=== PATIENT | female | born 1955 ===

== ENCOUNTER 2022-10-09 08:56 | Inpatient (IN) | payer OTHER ==
[2022-10-09 10:01] LABS: #Basophils 0.1 thou/uL (0.0-0.2); #Eosinphils 0.2 thou/uL (0.0-0.7); #Monocytes 0.8 thou/uL (0.11-0.59); #Neutrophils 4.3 thou/uL (1.40-6.50); %Basophils 0.8 % (0.0-1.0); %Eosinophils 2.1 % (0.0-10.0); %Lymphocytes 25.1 % (21.0-51.0); %Monocytes 10.6 % (0.0-10.0); Hemoglobin 10.1 g/dL (12.0-16.0); Mean Corpuscular HGB CONC 31.8 g/dL (32.0-36.0); Mean Corpuscular Hemoglobin 34.7 pg (27.0-31.0); Mean Corpuscular Volume 109.3 fl (78.0-98.0); Mean Platelet Volume 9.9 fL (7.4-10.4); Platelet Count 205 10x3/uL (130-400); RBC Distribution Width 17.4 % (11.5-14.5); Red Blood Cell (RBC) Count 2.91 mill/uL (4.20-5.40); White Blood Cell (WBC) Count 7.2 10x3/uL (4.8-10.8)
[2022-10-09 10:23] LABS: ALT (SGPT) 19 U/L (8-55); AST (SGOT) 71 U/L (5-34); Albumin 2.2 g/dL (3.4-4.8); Alkaline Phosphatase 500 U/L (40-110); Anion Gap 19 mmol/L (10-20); BUN (Urea Nitrogen) 16 mg/dL (9.8-20.1); Bilirubin, Total 2.3 mg/dL (0.2-1.2); Calc. Creatinine Clearance 0 mL/min (70-130); Calcium 7.3 mg/dL (7.8-10.44); Carbon Dioxide 24 mmol/L (23-31); Chloride 95 mmol/L (98-107); Estimated GFR 55; Globulin 3.1 g/dL (2.4-3.5); Glucose 82 mg/dL (80-115); Potassium 3.7 mmol/L (3.5-5.1); Protein, Total 5.3 g/dL (5.8-8.1); Sodium 134 mmol/L (136-145)
[2022-10-09] MEDS ORDERED: Lidocaine 1% PF 5 ML VIAL ONE (11:30)
[2022-10-09] MEDS ORDERED: Bacitracin 1 PK ONE (12:21)
[2022-10-09] MEDS ORDERED: TETANUS, DIPHTHERIA TOX,ADULT (TDVAX) 0.5 ML VIAL IM ONE (13:40)
[2022-10-09] MEDS ORDERED: Ondansetron PF 4 MG/2 ML Vial IVP PRN (13:40)
[2022-10-09] MEDS ORDERED: Dextrose 5% in Water 1,000 ML IV PRN (13:40)
[2022-10-09] MEDS ORDERED: Ondansetron ODT 4 MG TAB PO PRN (13:40)
[2022-10-09] MEDS ORDERED: Glucagon 1 MG/ML KIT IM PRN (13:40)
[2022-10-09] MEDS ORDERED: Dextrose 50% Abboject 50 ML SYRINGE SLOW IVP PRN (13:40)
[2022-10-09] MEDS ORDERED: Sodium Chloride 0.9% 1,000 ML IV SCH (14:00)
[2022-10-09] MEDS ORDERED: Acetaminophen 500 MG TAB ONE (14:04)
[2022-10-09] MEDS ORDERED: Boostrix 0.5 ML (Tdap) VIAL (>/=7 yrs of age) ONE (16:22)
[2022-10-09] MEDS ORDERED: Hydrocortisone Sod Succ/PF 100 mg/2 ml Vial IVP SCH (18:30)
[2022-10-09 18:39] LABS: Bacteria/HPF 3+ HPF (None Seen); Bilirubin 1+ (Negative); Blood, Urine Negative (Negative); Clarity Clear (Clear); Glucose, Urine (Dipstick) Normal (Negative); Ketone, Urine Negative (Negative); Leukocyte 500 Leu/uL (Negative); Nitrite Negative (Negative); Protein, Urine (Dipstick) Negative (Neg-Trace); RBC/HPF 0-3 HPF (0-3); Specific Gravity, Urine 1.016 (1.002-1.036); Urobilinogen 6 mg/dL (Less than 2); pH, Urine 5.5 (5.0-9.0)
[2022-10-09] MEDS ORDERED: Hydrocortisone Sod Succ/PF 100 mg/2 ml Vial ONE (18:48)
[2022-10-09 22:01] VITALS: BMI 44.4
[2022-10-09 23:38] LABS: INR-International Normal Ratio 2.6; Prothrombin Time 28.7 sec (12.0-14.7)
[2022-10-10] MEDS: Acetaminophen 325 MG TAB PO PRN ×3 (00:21→20:56)
[2022-10-10] MEDS ORDERED: Hydrocortisone Sod Succ/PF 100 mg/2 ml Vial IVP SCH (02:00)
[2022-10-10 03:28] LABS: #Monocytes 0.3 thou/uL (0.11-0.59); #Neutrophils 4.3 thou/uL (1.40-6.50); %Lymphocytes 17.7 % (21.0-51.0); %Monocytes 4.5 % (0.0-10.0); %Neutrophils 76.5 % (42.0-75.0); Hemoglobin 9.3 g/dL (12.0-16.0); Mean Corpuscular HGB CONC 32.3 g/dL (32.0-36.0); Mean Corpuscular Hemoglobin 35.4 pg (27.0-31.0); Mean Corpuscular Volume 109.5 fl (78.0-98.0); Mean Platelet Volume 9.7 fL (7.4-10.4); Platelet Count 200 10x3/uL (130-400); RBC Distribution Width 17.7 % (11.5-14.5); Red Blood Cell (RBC) Count 2.63 mill/uL (4.20-5.40); White Blood Cell (WBC) Count 5.6 10x3/uL (4.8-10.8)
[2022-10-10 03:45] LABS: INR-International Normal Ratio 1.2; PTT 32.7 sec (22.9-36.1); Prothrombin Time 15.2 sec (12.0-14.7)
[2022-10-10 03:50] LABS: Anion Gap 16 mmol/L (10-20); BUN (Urea Nitrogen) 13 mg/dL (9.8-20.1); Calc. Creatinine Clearance 137 mL/min (70-130); Carbon Dioxide 25 mmol/L (23-31); Chloride 101 mmol/L (98-107); Estimated GFR 87; Glucose 119 mg/dL (80-115); Potassium 3.8 mmol/L (3.5-5.1); Sodium 138 mmol/L (136-145)
[2022-10-10 04:21] LABS: Calcium 6.9 mg/dL (7.8-10.44)
[2022-10-10] MEDS ORDERED: Calcium Gluconate 100 MG/ML 10 ML IVPB SCH (05:00)
[2022-10-10] MEDS ORDERED: CALCIUM GLUC 1 GM/NS 50 ML 1 GM in Premix Bag 1 BAG IVPB SCH (05:15)
[2022-10-10] MEDS ORDERED: Calcium Chloride 13.6 MEQ in Sodium Chloride 0.9% 100 ML IVPB SCH (08:00)
[2022-10-10] MEDS: Senokot S 8.6-50 MG TAB PO SCH ×2 (08:54→20:53)
[2022-10-10] MEDS: Polyethylene Glycol 3350 17 GM Packet PO SCH (08:54)
[2022-10-10] MEDS: Hydrocortisone Sod Succ/PF 100 mg/2 ml Vial IVP SCH ×2 (09:39→17:51)
[2022-10-10 10:57] LABS: ALT (SGPT) 18 U/L (8-55); AST (SGOT) 61 U/L (5-34); Albumin 1.9 g/dL (3.4-4.8); Alkaline Phosphatase 455 U/L (40-110); Anion Gap 14 mmol/L (10-20); BUN (Urea Nitrogen) 12 mg/dL (9.8-20.1); Bilirubin, Total 2.5 mg/dL (0.2-1.2); Calc. Creatinine Clearance 162 mL/min (70-130); Calcium 7.1 mg/dL (7.8-10.44); Carbon Dioxide 26 mmol/L (23-31); Chloride 101 mmol/L (98-107); Estimated GFR 91; Globulin 2.9 g/dL (2.4-3.5); Glucose 123 mg/dL (80-115); Magnesium 1.9 mg/dL (1.6-2.6); Potassium 3.8 mmol/L (3.5-5.1); Protein, Total 4.8 g/dL (5.8-8.1); Sodium 137 mmol/L (136-145)
[2022-10-10] MEDS ORDERED: Magnesium 2 GM/50 ML(in water) 2 GM in Premix Bag 1 BAG IVPB SCH (12:30)
[2022-10-10] MEDS ORDERED: Lactated Ringer's 1,000 ML IV SCH (14:30)
[2022-10-10] MEDS: Gabapentin 400 MG CAP PO SCH ×2 (15:01→20:52)
[2022-10-10] MEDS ORDERED: Metoprolol Tartrate 25 MG TAB PO SCH ×3 (21:00)
[2022-10-11] MEDS: Hydrocortisone Sod Succ/PF 100 mg/2 ml Vial IVP SCH (03:25)
[2022-10-11] MEDS ORDERED: Hydrocortisone Sod Succ/PF 100 mg/2 ml Vial IVP SCH (03:30)
[2022-10-11] MEDS: Gabapentin 400 MG CAP PO SCH (08:09)
[2022-10-11] MEDS: Polyethylene Glycol 3350 17 GM Packet PO SCH (08:10)
[2022-10-11] MEDS: Senokot S 8.6-50 MG TAB PO SCH (08:10)
[2022-10-11 08:30] VITALS: TEMP 97.5
[2022-10-11 14:24] VITALS: BP 152/93
== END 2022-10-11 14:22 | disposition home or self-care (01) | DRG 86 ==
LOC: ERS 08:56 → ERHOLD 13:44 → IMCU/EMU 22:59
PROVIDERS: ADMIT Specialist; ATTEND Specialist
PROC: 30233J1 Transfusion of Nonautologous Serum Albumin into Peripheral Vein, Percutaneous Approach (ICD-10-PCS; principal; 2022-10-10)
DX: S06.6X0A Traumatic subarachnoid hemorrhage without loss of consciousness, initial encounter (principal); E27.40 Unspecified adrenocortical insufficiency; I10 Essential (primary) hypertension; S01.411A Laceration without foreign body of right cheek and temporomandibular area, initial encounter; S51.011A Laceration without foreign body of right elbow, initial encounter; I89.0 Lymphedema, not elsewhere classified; E83.51 Hypocalcemia; Z96.651 Presence of right artificial knee joint; Z90.49 Acquired absence of other specified parts of digestive tract; Z90.710 Acquired absence of both cervix and uterus; Z88.8 Allergy status to other drugs, medicaments and biological substances; Z79.01 Long term (current) use of anticoagulants; Z79.899 Other long term (current) drug therapy; Z86.711 Personal history of pulmonary embolism; W01.198A Fall on same level from slipping, tripping and stumbling with subsequent striking against other object, initial encounter
CPT/HCPCS: 12001; 12011; 36415; 70450; 71045; 72125; 72170; 80048; 80053; 81001; 82533; 83735; 84484; 85025; 85610; 85730; 90714; 90715; 93005; 94760; 96360; 96361; 97139; J0613; J1720; J3475; J3490; J7050; J7120; P9045

== ENCOUNTER 2024-02-17 15:18 | Inpatient (IN) | payer MEDICARE, OTHER ==
[~2024-02-17 15:18] MED LIST: Iopamidol-370 76% 500 ML MDV (1 ML CHARGE) ONE
[2024-02-17 15:51] LABS: Actual Bicarbonate (HCO3v) 26.4 mEq/L (22-28); Base Excess 2.1 mEq/L (-2.0 to +3.0); Calcium, Ionized (venous) 0.99 mmol/L (1.16-1.32); Chloride (VBG) 99 mmol/L (98-106); Hematocrit-VBG 40 % (36.0-47.0); Hemoglobin (Hb) 13.7 g/dL (11.7-16.1); Potassium (VBG) 3.75 mmol/L (3.70-5.30); Sodium 137 mmol/L (133-146); pH (venous) 7.437 (7.32-7.43)
[2024-02-17 15:56] LABS: #Basophils Less than 0.03 10x3/uL (0.0-0.2); #Eosinophils Less than 0.03 10x3/uL (0.0-0.7); %Basophils 0.1 % (0.0-1.0); %Eosinophils 0.1 % (0.0-10.0); %Lymphocytes 7.9 % (21.0-51.0); %Monocytes 1.3 % (0.0-10.0); %Neutrophils 89.9 % (42.0-75.0); Hematocrit 38.8 % (36.0-47.0); Mean Corpuscular HGB CONC 33.5 g/dL (32.0-36.0); Mean Corpuscular Hemoglobin 35.4 pg (27.0-31.0); Mean Corpuscular Volume 105.7 fL (78.0-98.0); Platelet Count 274 10x3/uL (130-400); RBC Distribution Width 18.6 % (11.5-14.5); Red Blood Cell (RBC) Count 3.67 mill/uL (4.20-5.40)
[2024-02-17 16:11] LABS: ALT (SGPT) 11 U/L (8-55); AST (SGOT) 45 U/L (5-34); Albumin 1.8 g/dL (3.4-4.8); Alkaline Phosphatase 422 U/L (40-110); Anion Gap 18 mmol/L (10-20); BUN (Urea Nitrogen) 5 mg/dL (9.8-20.1); Bilirubin, Total 4.4 mg/dL (0.2-1.2); Calc. Creatinine Clearance 0 mL/min (70-130); Calcium 7.7 mg/dL (7.8-10.44); Carbon Dioxide 25 mmol/L (23-31); Chloride 99 mmol/L (98-107); Estimated GFR 98; Globulin 3.3 g/dL (2.4-3.5); Glucose 123 mg/dL (80-115); Potassium 3.7 mmol/L (3.5-5.1); Protein, Total 5.1 g/dL (5.8-8.1); Sodium 138 mmol/L (136-145)
[2024-02-17] MEDS ORDERED: Cefepime 2 GM VIAL ONE (16:12)
[2024-02-17] MEDS ORDERED: Sodium Chloride 0.9% 100 ML ONE (16:12)
[2024-02-17 16:37] LABS: INR-International Normal Ratio 1.7; PTT 51.9 sec (22.9-36.1); Prothrombin Time 19.8 sec (12.0-14.7)
[2024-02-17] MEDS ORDERED: Ondansetron PF 4 MG/2 ML Vial IVP PRN (18:07)
[2024-02-17] MEDS ORDERED: Dextrose 50% Abboject 50 ML SYRINGE SLOW IVP PRN (18:07)
[2024-02-17] MEDS ORDERED: traMADol HCl 50 MG TAB PO PRN (18:07)
[2024-02-17] MEDS ORDERED: Glucagon 1 MG/ML KIT IM PRN (18:07)
[2024-02-17] MEDS ORDERED: Dextrose 5% in Water 1,000 ML IV PRN (18:07)
[2024-02-17 18:16] LABS: Bacteria/HPF 4+ HPF (None Seen); Bilirubin 2+ (Negative); Blood, Urine Negative (Negative); CAUTI Indications for Culture Pelvic or flank pain; Clarity Turbid (Clear); Glucose, Urine (Dipstick) Normal (Negative); Ketone, Urine Negative (Negative); Leukocyte 500 Leu/uL (Negative); Nitrite Negative (Negative); Protein, Urine (Dipstick) 50 mg/dL (Neg-Trace); Squamous Epithelial 0-3 HPF (0-3); Urobilinogen 6 mg/dL (Less than 2)
[2024-02-17 18:41] LABS: Specific Gravity, Urine 1.051 (1.002-1.036)
[2024-02-17 18:47] LABS: WBC/HPF 21-50 HPF (0-3)
[2024-02-17 18:48] LABS: RBC/HPF 0-3 HPF (0-3)
[2024-02-17 18:49] LABS: Urine Culture Reflex Yes Yes
[2024-02-17 19:20] LABS: Lactic Acid 3.63 mmol/L (0.5-2.2)
[2024-02-17] MEDS: Vancomycin (BATCH) 2 GM in Premix 1 BAG IVPB ONE (22:12)
[2024-02-17] MEDS: HUM PROTHROMBIN CPLX(PCC)4FACT 2,000 UNITS IV SCH (22:12)
[2024-02-17] MEDS: Famotidine/PF 20 mg/2ml Vial SLOW IVP SCH (22:19)
[2024-02-17] MEDS: cefTRIAXone\\ROCEPHIN 1 GM in Sodium Chloride 0.9% 100 ML IVPB SCH (22:19)
[2024-02-18] MEDS: Sodium Chloride 0.9% 1,000 ML IV SCH ×2 (00:09→08:35)
[2024-02-18] MEDS: Magnesium 2 GM/50 ML(in water) 2 GM in Premix 1 BAG IVPB SCH (00:19)
[2024-02-18 04:38] LABS: Hematocrit 34.3 % (36.0-47.0); Hemoglobin 11.4 g/dL (12.0-16.0); Mean Corpuscular HGB CONC 33.2 g/dL (32.0-36.0); Mean Corpuscular Volume 108.2 fL (78.0-98.0); Mean Platelet Volume 11.1 fL (7.4-10.4); Platelet Count 267 10x3/uL (130-400); RBC Distribution Width 18.7 % (11.5-14.5); Red Blood Cell (RBC) Count 3.17 mill/uL (4.20-5.40)
[2024-02-18 04:42] LABS: Anion Gap 19 mmol/L (10-20); BUN (Urea Nitrogen) 5 mg/dL (9.8-20.1); Calc. Creatinine Clearance 166 mL/min (70-130); Calcium 7.1 mg/dL (7.8-10.44); Carbon Dioxide 18 mmol/L (23-31); Chloride 106 mmol/L (98-107); Estimated GFR 101; Glucose 89 mg/dL (80-115); Potassium 3.4 mmol/L (3.5-5.1); Sodium 140 mmol/L (136-145)
[2024-02-18 04:46] LABS: ALT (SGPT) 13 U/L (8-55); AST (SGOT) 97 U/L (5-34); Albumin 1.6 g/dL (3.4-4.8); Alkaline Phosphatase 363 U/L (40-110); Bilirubin, Direct 3.1 mg/dL (0.1-0.3); Protein, Total 4.4 g/dL (5.8-8.1)
[2024-02-18 05:23] LABS: Anisocytosis SLIGHT = 6-15 cells HPF (0-5); Band 9 % (5-11); Burr Cells SLIGHT = 2-5 cells HPF (0-1); Lymphocytes 2 % (21-51); Macrocytosis MODERATE=16-30 cells HPF (0-5); Monocytes 4 % (0-10); Neutrophil 85 % (42-75); Platelet Adequacy Comment Platelets Decreased; Poikilocytosis SLIGHT = 6-15 cells HPF (0-5); Polychromasia SLIGHT = 2-3 cells HPF (0-2); Tear Drops SLIGHT = 2-5 cells HPF (0-1); Toxic Granulation SLIGHT; Vacuoles MODERATE
[2024-02-18] MEDS ORDERED: Electrolyte Replacement Protocol FS PRN ×2 (07:45→10:15)
[2024-02-18 08:03] LABS: INR-International Normal Ratio 1.5
[2024-02-18] MEDS: Potassium Chloride 20 MEQ in Premix 1 BAG IVPB SCH (09:31)
[2024-02-18] MEDS: Albumin 25% 25 GM (100 mL) BOT IVPB SCH (10:17)
[2024-02-18] MEDS: Electrolyte Replacement Protocol 1 EACH FS ONE ×2 (11:22→15:16)
[2024-02-18] MEDS ORDERED: Iopamidol-370 76% 500 ML MDV (1 ML CHARGE) ONE (11:48)
[2024-02-18 11:56] LABS: Magnesium 2.1 mg/dL (1.6-2.6)
[2024-02-18 12:05] LABS: Actual Bicarbonate (HCO3a) 20.7 mEq/L (22-28); Base Excess (BEa) -4.7 mEq/L (-2.0 to +3.0); CO2 Tension 39.5 mmHg (35.0-45.0); Calcium, Ionized (arterial) 1.02 mmol/L (1.12-1.30); Carboxyhemoglobin (COHb) 0.8 gm% (0.0-3.0); Hematocrit-ABG 34 % (36.0-47.0); Hemoglobin (Hb) 11.5 g/dL (12.0-16.0); Potassium - ABG Lab 3.92 mmol/L (3.70-5.30); pH, Arterial 7.338 (7.35-7.45)
[2024-02-18] MEDS: Etomidate 40 MG (20 mL) VIAL IVP SCH (12:19)
[2024-02-18] MEDS ORDERED: Magnevist 469MG/ML 20 ML VIAL ONE (12:19)
[2024-02-18] MEDS: NOREPINEPHRINE 8 MG/250 ML-D5W 250 ML IVPB SCH (12:24)
[2024-02-18] MEDS: Fentanyl CADD 100 ML IV SCH (12:38)
[2024-02-18] MEDS: Propofol 1,000 MG/100 ML VIAL IV PRN (12:38)
[2024-02-18] MEDS: Lorazepam 2 MG/ML VIAL SLOW IVP PRN (12:38)
[2024-02-18] MEDS ORDERED: Morphine 2 MG/ML VIAL SLOW IVP PRN (12:45)
[2024-02-18] MEDS ORDERED: Fentanyl BOLUS 250 ML IVPB PRN (12:45)
[2024-02-18] MEDS ORDERED: DISCONTINUE PREVIOUS NARCOTIC PAIN MEDICATIONS AND BENZODIAZEPINES FS SCH (12:45)
[2024-02-18 13:59] LABS: CO2 Tension 36.9 mmHg (35.0-45.0); Carboxyhemoglobin (COHb) 0.6 gm% (0.0-3.0); Hematocrit-ABG 31 % (36.0-47.0); Hemoglobin (Hb) 10.7 g/dL (12.0-16.0); pH, Arterial 7.352 (7.35-7.45)
[2024-02-18 14:01] LABS: ALV-art Gradient 287.675 mmHg (0-20); Puncture Site Left Radial artery
[2024-02-18] MEDS: Propofol 1,000 MG/100 ML VIAL IV ONE (15:13)
[2024-02-18 15:16] LABS: Lactic Acid 3.43 mmol/L (0.5-2.2)
[2024-02-18] MEDS: Meropenem 1 GM in Sodium Chloride 0.9% 100 ML IVPB SCH ×3 (15:16→20:32)
[2024-02-18] MEDS: Fentanyl CADD 100 ML ONE (15:17)
[2024-02-18] MEDS: levETIRAcetam 500 MG (5 mL) VIAL SLOW IVP SCH (15:24)
[2024-02-18] MEDS: NOREPINEPHRINE 8 MG/250 ML-D5W 250 ML ONE (15:24)
[2024-02-18] MEDS: Ventilator Sedation Protocol 1 EACH FS ONE (15:24)
[2024-02-18] MEDS: Lorazepam 2 MG/ML VIAL ONE (15:25)
[2024-02-18 16:13] LABS: Puncture Site Left Radial artery
[2024-02-18 19:39] LABS: #Basophils 0.03 10x3/uL (0.0-0.2); #Eosinophils Less than 0.03 10x3/uL (0.0-0.7); %Basophils 0.2 % (0.0-1.0); %Eosinophils 0.1 % (0.0-10.0); %Lymphocytes 9.6 % (21.0-51.0); %Monocytes 6.7 % (0.0-10.0); %Neutrophils 80.3 % (42.0-75.0); Hematocrit 30.3 % (36.0-47.0); Mean Corpuscular Hemoglobin 36.1 pg (27.0-31.0); Mean Corpuscular Volume 109.4 fL (78.0-98.0); Mean Platelet Volume 10.4 fL (7.4-10.4); Platelet Count 239 10x3/uL (130-400); RBC Distribution Width 19.4 % (11.5-14.5); Red Blood Cell (RBC) Count 2.77 mill/uL (4.20-5.40)
[2024-02-18 20:12] LABS: Anion Gap 17 mmol/L (10-20); BUN (Urea Nitrogen) 5 mg/dL (9.8-20.1); Calc. Creatinine Clearance 171 mL/min (70-130); Calcium 6.9 mg/dL (7.8-10.44); Carbon Dioxide 19 mmol/L (23-31); Chloride 106 mmol/L (98-107); Estimated GFR 101; Glucose 123 mg/dL (80-115); Potassium 4.2 mmol/L (3.5-5.1); Sodium 138 mmol/L (136-145)
[2024-02-18] MEDS: Calcium Chloride 1 GM/10 ML Abboject SYRINGE IVP SCH (20:41)
[2024-02-18] MEDS ORDERED: Calcium Chloride 13.6 MEQ in Sodium Chloride 0.9% 100 ML IVPB SCH (21:00)
[2024-02-18] MEDS: Lactated Ringer's 1,000 ML IV SCH (22:41)
[2024-02-18] MEDS: Albumin 5% 12.5 GM (250 mL) BOT IVPB SCH (22:41)
[2024-02-19] MEDS: Lactulose 20 GM (30 mL) UDCUP PER TUBE SCH ×2 (00:11→09:30)
[2024-02-19 03:52] LABS: #Basophils Less than 0.03 10x3/uL (0.0-0.2); %Basophils 0.1 % (0.0-1.0); %Eosinophils 0.3 % (0.0-10.0); %Lymphocytes 10.6 % (21.0-51.0); %Monocytes 7.5 % (0.0-10.0); %Neutrophils 80.7 % (42.0-75.0); Hematocrit 30.4 % (36.0-47.0); Hemoglobin 9.6 g/dL (12.0-16.0); Mean Corpuscular HGB CONC 31.6 g/dL (32.0-36.0); Mean Corpuscular Hemoglobin 36.1 pg (27.0-31.0); Mean Corpuscular Volume 114.3 fL (78.0-98.0); Mean Platelet Volume 9.7 fL (7.4-10.4); Platelet Count 197 10x3/uL (130-400); RBC Distribution Width 19.9 % (11.5-14.5); Red Blood Cell (RBC) Count 2.66 mill/uL (4.20-5.40)
[2024-02-19 04:02] LABS: INR-International Normal Ratio 1.5; Prothrombin Time 18.1 sec (12.0-14.7)
[2024-02-19 04:03] LABS: ALT (SGPT) 12 U/L (8-55); AST (SGOT) 81 U/L (5-34); Albumin 2.9 g/dL (3.4-4.8); Alkaline Phosphatase 212 U/L (40-110); Anion Gap 15 mmol/L (10-20); BUN (Urea Nitrogen) 6 mg/dL (9.8-20.1); Bilirubin, Total 4.4 mg/dL (0.2-1.2); Calc. Creatinine Clearance 171 mL/min (70-130); Calcium 7.8 mg/dL (7.8-10.44); Carbon Dioxide 20 mmol/L (23-31); Chloride 109 mmol/L (98-107); Estimated GFR 101; Glucose 139 mg/dL (80-115); Iron 35 ug/dL (50-170); Iron Binding Capacity, Total 63 mcg/dL (265-497); Lipase Less than 4 U/L (8-78); Magnesium 2.2 mg/dL (1.6-2.6); PTT 48.1 sec (22.9-36.1); Potassium 3.6 mmol/L (3.5-5.1); Protein, Total 4.9 g/dL (5.8-8.1); Sodium 140 mmol/L (136-145)
[2024-02-19 04:04] LABS: Hemoglobin A1c 4.2 % (4.0-6.0)
[2024-02-19 04:28] LABS: HBSAB Concentration Less than 8.00 mIU/mL; HBsAg Index 0.27 S/CO (0-0.99); Hep B Surf AB NONREACTIVE (NonReactive); Hep B Surf Ag NONREACTIVE S/CO (NonReactive); Hep C IgG Ab NONREACTIVE S/CO (NonReactive); Hep C Index 0.07 S/CO (0-0.79)
[2024-02-19 05:50] LABS: Thyroid Stimulating Hormone 0.1825 uIU/mL (0.35-4.94)
[2024-02-19 05:54] LABS: Vitamin B12 Greater than 2000 pg/mL (211-911)
[2024-02-19 08:25] LABS: CO2 Tension 32.5 mmHg (35.0-45.0); Calcium, Ionized (arterial) 1.08 mmol/L (1.12-1.30); Hematocrit-ABG 27 % (36.0-47.0); Hemoglobin (Hb) 9.2 g/dL (12.0-16.0); O2 Tension (PaO2), arterial 82.7 mmHg (> 80.0); Potassium - ABG Lab 3.28 mmol/L (3.70-5.30); pH, Arterial 7.408 (7.35-7.45)
[2024-02-19 08:27] LABS: ALV-art Gradient 161.875 mmHg (0-20)
[2024-02-19] MEDS: Thiamine HCl 200 MG/2 ML VIAL SLOW IVP SCH (11:00)
[2024-02-19] MEDS: levETIRAcetam 500 MG (5 mL) VIAL SLOW IVP SCH ×2 (11:00→20:05)
[2024-02-19] MEDS: Albumin 5% 12.5 GM (250 mL) BOT IVPB SCH (20:42)
[2024-02-19] MEDS: Sodium Bicarb 50 MEQ/50 ML Abboject 8.4% SYRINGE IVP SCH (20:42)
[2024-02-19] MEDS: Furosemide 40 MG (4 mL) VIAL SLOW IVP SCH (23:09)
[2024-02-19 23:32] LABS: ALT (SGPT) 9 U/L (8-55); AST (SGOT) 67 U/L (5-34); Albumin 2.7 g/dL (3.4-4.8); Alkaline Phosphatase 227 U/L (40-110); Anion Gap 14 mmol/L (10-20); BUN (Urea Nitrogen) 5 mg/dL (9.8-20.1); Bilirubin, Total 4.3 mg/dL (0.2-1.2); Calc. Creatinine Clearance 141 mL/min (70-130); Calcium 7.5 mg/dL (7.8-10.44); Carbon Dioxide 24 mmol/L (23-31); Chloride 108 mmol/L (98-107); Estimated GFR 97; Globulin 2.1 g/dL (2.4-3.5); Glucose 169 mg/dL (80-115); Potassium 3.4 mmol/L (3.5-5.1); Protein, Total 4.8 g/dL (5.8-8.1); Sodium 143 mmol/L (136-145)
[2024-02-20] MEDS: Albumin 25% 25 GM (100 mL) BOT IVPB SCH (00:31)
[2024-02-20] MEDS: Potassium Chloride 20 MEQ in Premix 1 BAG IVPB SCH ×2 (01:15→10:56)
[2024-02-20] MEDS: Calcium Chloride 13.6 MEQ in Sodium Chloride 0.9% 100 ML IVPB SCH (01:28)
[2024-02-20 03:09] LABS: Base Excess (BEa) 0.1 mEq/L (-2.0 to +3.0); CO2 Tension 47.7 mmHg (35.0-45.0); Calcium, Ionized (arterial) 1.14 mmol/L (1.12-1.30); Carboxyhemoglobin (COHb) 0.8 gm% (0.0-3.0); Hematocrit-ABG 32 % (36.0-47.0); Potassium - ABG Lab 3.53 mmol/L (3.70-5.30); pH, Arterial 7.354 (7.35-7.45)
[2024-02-20 03:12] LABS: O2 Tension (PaO2), arterial 56.5 mmHg (> 80.0)
[2024-02-20 03:13] LABS: ALV-art Gradient 311.675 mmHg (0-20); Puncture Site Arterial Line
[2024-02-20 04:49] LABS: INR-International Normal Ratio 1.3; Prothrombin Time 16.1 sec (12.0-14.7)
[2024-02-20 04:50] LABS: PTT 34.2 sec (22.9-36.1)
[2024-02-20 04:56] LABS: Hematocrit 32.3 % (36.0-47.0); Hemoglobin 10.4 g/dL (12.0-16.0); Mean Corpuscular HGB CONC 32.2 g/dL (32.0-36.0); Mean Corpuscular Hemoglobin 36.6 pg (27.0-31.0); Mean Corpuscular Volume 113.7 fL (78.0-98.0); Mean Platelet Volume 9.9 fL (7.4-10.4); Platelet Count 194 10x3/uL (130-400); RBC Distribution Width 19.4 % (11.5-14.5); Red Blood Cell (RBC) Count 2.84 mill/uL (4.20-5.40)
[2024-02-20 05:07] LABS: ALT (SGPT) 15 U/L (8-55); AST (SGOT) 70 U/L (5-34); Albumin 2.5 g/dL (3.4-4.8); Alkaline Phosphatase 225 U/L (40-110); Anion Gap 14 mmol/L (10-20); BUN (Urea Nitrogen) 6 mg/dL (9.8-20.1); Calc. Creatinine Clearance 143 mL/min (70-130); Carbon Dioxide 22 mmol/L (23-31); Chloride 109 mmol/L (98-107); Estimated GFR 97; Globulin 2.2 g/dL (2.4-3.5); Glucose 163 mg/dL (80-115); Magnesium 2.1 mg/dL (1.6-2.6); Potassium 3.5 mmol/L (3.5-5.1); Protein, Total 4.7 g/dL (5.8-8.1); Sodium 141 mmol/L (136-145)
[2024-02-20 06:19] LABS: Band 4 % (5-11); Lymphocytes 1 % (21-51); Monocytes 1 % (0-10); Neutrophil 94 % (42-75); Nucleated RBC (Manual Ct) 1 % (0); Platelet Adequacy Comment Platelets Normal; Polychromasia SLIGHT = 2-3 cells HPF (0-2)
[2024-02-20 07:39] LABS: Hepatitis A Total ABS Negative (Negative)
[2024-02-20] MEDS: FLU (Fluad Triv) TS24-25 (65UP)/MF59C/PF 45 MCG/0.5 ML Syringe IM ONE (08:23)
[2024-02-20] MEDS: cefTRIAXone\\ROCEPHIN 2 GM in Sodium Chloride 0.9% 100 ML IVPB SCH (10:25)
[2024-02-20] MEDS: Rifaximin 550 MG TAB PO SCH (10:41)
[2024-02-20] MEDS: Lactulose 20 GM (30 mL) UDCUP PER TUBE SCH (13:08)
[2024-02-20 17:30] LABS: EliA Vaculitis New Method **** NEW METHOD ****; Mitochondrial Ab 0.7 U/mL (<4 Negative)
[2024-02-20 20:21] LABS: Potassium 4.2 mmol/L (3.5-5.1)
[2024-02-21 04:39] LABS: Hematocrit 31.1 % (36.0-47.0); Hemoglobin 9.7 g/dL (12.0-16.0); Mean Corpuscular HGB CONC 31.2 g/dL (32.0-36.0); Mean Corpuscular Hemoglobin 35.8 pg (27.0-31.0); Mean Corpuscular Volume 114.8 fL (78.0-98.0); Mean Platelet Volume 10.6 fL (7.4-10.4); Platelet Count 121 10x3/uL (130-400); RBC Distribution Width 18.8 % (11.5-14.5); Red Blood Cell (RBC) Count 2.71 mill/uL (4.20-5.40)
[2024-02-21 04:48] LABS: ALT (SGPT) 10 U/L (8-55); AST (SGOT) 59 U/L (5-34); Alkaline Phosphatase 236 U/L (40-110); Anion Gap 13 mmol/L (10-20); BUN (Urea Nitrogen) 7 mg/dL (9.8-20.1); Bilirubin, Total 4.8 mg/dL (0.2-1.2); Calc. Creatinine Clearance 156 mL/min (70-130); Calcium 7.8 mg/dL (7.8-10.44); Carbon Dioxide 25 mmol/L (23-31); Chloride 112 mmol/L (98-107); Estimated GFR 97; Globulin 2.2 g/dL (2.4-3.5); Glucose 158 mg/dL (80-115); Potassium 3.9 mmol/L (3.5-5.1); Protein, Total 4.2 g/dL (5.8-8.1); Sodium 146 mmol/L (136-145)
[2024-02-21 04:49] LABS: INR-International Normal Ratio 1.3; PTT 34.7 sec (22.9-36.1); Prothrombin Time 16.2 sec (12.0-14.7)
[2024-02-21 05:03] LABS: Anisocytosis MARKED = >30 cells HPF (0-5); Band 9 % (5-11); Hypochromia SLIGHT = 6-15 cells HPF (0-5); Lymphocytes 9 % (21-51); Macrocytosis MODERATE=16-30 cells HPF (0-5); Monocytes 2 % (0-10); Neutrophil 80 % (42-75); Platelet Adequacy Comment Platelets Decreased; Polychromasia SLIGHT = 2-3 cells HPF (0-2); Target Cells SLIGHT = 2-5 cells HPF (0-1)
[2024-02-21 07:47] LABS: Actual Bicarbonate (HCO3a) 23.6 mEq/L (22-28); Base Excess (BEa) 0.5 mEq/L (-2.0 to +3.0); CO2 Tension 32.4 mmHg (35.0-45.0); Calcium, Ionized (arterial) 1.03 mmol/L (1.12-1.30); Carboxyhemoglobin (COHb) 1.9 gm% (0.0-3.0); Hematocrit-ABG 28 % (36.0-47.0); Hemoglobin (Hb) 9.5 g/dL (12.0-16.0); Potassium - ABG Lab 3.22 mmol/L (3.70-5.30); pH, Arterial 7.481 (7.35-7.45)
[2024-02-21] MEDS: Magnesium 2 GM/50 ML(in water) 2 GM in Premix 1 BAG IVPB SCH (07:51)
[2024-02-21 08:04] LABS: O2 Tension (PaO2), arterial 57.8 mmHg (> 80.0); Puncture Site ALINE
[2024-02-21] MEDS: Cyanocobalamin (Vitamin B-12) 1,000 MCG TAB PER TUBE SCH (12:19)
[2024-02-21] MEDS: Folic Acid 1 MG TAB PER TUBE SCH (12:19)
[2024-02-21] MEDS: Insulin Lispro 100 UNIT/ML 10 ML VIAL SC PRN (12:20)
[2024-02-21] MEDS: Lactulose 20 GM (30 mL) UDCUP PER TUBE SCH (14:56)
[2024-02-21 15:37] LABS: Smooth Muscle Total ABS 2 Units (0-19)
[2024-02-22 04:02] LABS: Hematocrit 30.4 % (36.0-47.0); Hemoglobin 9.5 g/dL (12.0-16.0); Mean Corpuscular HGB CONC 31.3 g/dL (32.0-36.0); Mean Corpuscular Hemoglobin 35.2 pg (27.0-31.0); Mean Corpuscular Volume 112.6 fL (78.0-98.0); Platelet Count 75 10x3/uL (130-400); RBC Distribution Width 19.1 % (11.5-14.5)
[2024-02-22 04:03] LABS: #Basophils 0.03 10x3/uL (0.0-0.2); %Basophils 0.3 % (0.0-1.0); %Eosinophils 0.5 % (0.0-10.0); %Lymphocytes 9.2 % (21.0-51.0); %Monocytes 8.2 % (0.0-10.0); %Neutrophils 78.9 % (42.0-75.0)
[2024-02-22 04:10] LABS: INR-International Normal Ratio 1.3; Prothrombin Time 15.8 sec (12.0-14.7)
[2024-02-22 04:11] LABS: PTT 34.3 sec (22.9-36.1)
[2024-02-22 04:18] LABS: ALT (SGPT) 14 U/L (8-55); AST (SGOT) 80 U/L (5-34); Albumin 1.8 g/dL (3.4-4.8); Alkaline Phosphatase 263 U/L (40-110); Anion Gap 11 mmol/L (10-20); BUN (Urea Nitrogen) 8 mg/dL (9.8-20.1); Bilirubin, Total 4.9 mg/dL (0.2-1.2); Calc. Creatinine Clearance 164 mL/min (70-130); Carbon Dioxide 29 mmol/L (23-31); Chloride 112 mmol/L (98-107); Estimated GFR 99; Globulin 2.6 g/dL (2.4-3.5); Glucose 140 mg/dL (80-115); Magnesium 2.4 mg/dL (1.6-2.6); Potassium 3.9 mmol/L (3.5-5.1); Protein, Total 4.4 g/dL (5.8-8.1); Sodium 148 mmol/L (136-145)
[2024-02-22 04:35] LABS: Band 10 % (5-11); Eosinophils 1 % (0-10); Lymphocytes 5 % (21-51); Macrocytosis SLIGHT = 6-15 cells HPF (0-5); Metamyelocyte 2 % (0-0); Monocytes 5 % (0-10); Myelocyte 2 % (0-0); Neutrophil 75 % (42-75); Platelet Adequacy Comment Platelets Decreased; Polychromasia SLIGHT = 2-3 cells HPF (0-2); Target Cells SLIGHT = 2-5 cells HPF (0-1)
[2024-02-22] MEDS: hydrALAZINE 20 MG/ML VIAL SLOW IVP PRN (14:35)
[2024-02-22] MEDS ORDERED: Lorazepam 2 MG/ML VIAL SLOW IVP PRN (16:18)
[2024-02-22] MEDS: LACOSAMIDE IVPB SCH (17:38)
[2024-02-22] MEDS: SODIUM CHLORIDE 0.9% IVPB SCH (17:38)
[2024-02-22] MEDS ORDERED: Propofol BOLUS 1,000 MG/100 ML VIAL IV PRN (19:45)
[2024-02-22] MEDS ORDERED: DISCONTINUE PREVIOUS NARCOTIC PAIN MEDICATIONS AND BENZODIAZEPINES FS SCH (19:45)
[2024-02-22] MEDS ORDERED: Fentanyl BOLUS 250 ML IVPB PRN (19:45)
[2024-02-22] MEDS ORDERED: Fentanyl CADD 100 ML IV SCH (19:45)
[2024-02-22] MEDS: Propofol BOLUS 1,000 MG/100 ML VIAL IV PRN (19:46)
[2024-02-22] MEDS: Ventilator Sedation Protocol 1 EACH FS ONE (20:00)
[2024-02-22] MEDS: Propofol 1,000 MG/100 ML VIAL IV ONE (20:00)
[2024-02-23] MEDS: Lorazepam 2 MG/ML VIAL SLOW IVP PRN (02:47)
[2024-02-23] MEDS: levETIRAcetam 500 MG (5 mL) VIAL SLOW IVP SCH (02:55)
[2024-02-23] MEDS ORDERED: Midazolam In 0.9 % NaCl/PF 100 ML IVPB SCH (03:30)
[2024-02-23 05:46] LABS: Hematocrit 31.1 % (36.0-47.0); Hemoglobin 9.5 g/dL (12.0-16.0); Mean Corpuscular HGB CONC 30.5 g/dL (32.0-36.0); Mean Corpuscular Hemoglobin 35.7 pg (27.0-31.0); Mean Corpuscular Volume 116.9 fL (78.0-98.0); Mean Platelet Volume 13.2 fL (7.4-10.4); Platelet Count 62 10x3/uL (130-400); RBC Distribution Width 19.7 % (11.5-14.5); Red Blood Cell (RBC) Count 2.66 mill/uL (4.20-5.40)
[2024-02-23 05:59] LABS: INR-International Normal Ratio 1.3
[2024-02-23 06:00] LABS: PTT 31.3 sec (22.9-36.1)
[2024-02-23 06:15] LABS: Anisocytosis SLIGHT = 6-15 cells HPF (0-5); Band 5 % (5-11); Large Platelets 7.5 % (0-5); Lymphocytes 12 % (21-51); Macrocytosis MODERATE=16-30 cells HPF (0-5); Monocytes 7 % (0-10); Myelocyte 2 % (0-0); Neutrophil 71 % (42-75); Nucleated RBC (Manual Ct) 2 % (0); Platelet Adequacy Comment Platelets Decreased; Polychromasia SLIGHT = 2-3 cells HPF (0-2); Promyelocytes 1 % (0-0); Reactive Lymphocytes 1 % (0-10); Smudge Cells 13.1 %
[2024-02-23 06:32] VITALS: BMI 40.4
[2024-02-23 06:51] LABS: ALT (SGPT) 23 U/L (8-55); AST (SGOT) 114 U/L (5-34); Albumin 1.7 g/dL (3.4-4.8); Alkaline Phosphatase 297 U/L (40-110); Anion Gap 14 mmol/L (10-20); BUN (Urea Nitrogen) 14 mg/dL (9.8-20.1); Bilirubin, Total 3.7 mg/dL (0.2-1.2); Calc. Creatinine Clearance 156 mL/min (70-130); Carbon Dioxide 28 mmol/L (23-31); Chloride 114 mmol/L (98-107); Estimated GFR 99; Globulin 2.7 g/dL (2.4-3.5); Glucose 138 mg/dL (80-115); Magnesium 2.4 mg/dL (1.6-2.6); Potassium 4.1 mmol/L (3.5-5.1); Protein, Total 4.4 g/dL (5.8-8.1); Sodium 152 mmol/L (136-145)
[2024-02-23] MEDS: Lacosamide 200 MG in Sodium Chloride 0.9% 50 ML IVPB SCH ×2 (07:00→21:03)
[2024-02-23 08:03] LABS: Actual Bicarbonate (HCO3a) 28.2 mEq/L (22-28); Base Excess (BEa) 5.4 mEq/L (-2.0 to +3.0); CO2 Tension 34.3 mmHg (35.0-45.0); Calcium, Ionized (arterial) 1.13 mmol/L (1.12-1.30); Hematocrit-ABG 29 % (36.0-47.0); Hemoglobin (Hb) 9.9 g/dL (12.0-16.0); O2 Tension (PaO2), arterial 68.9 mmHg (> 80.0); Potassium - ABG Lab 3.88 mmol/L (3.70-5.30); pH, Arterial 7.533 (7.35-7.45)
[2024-02-23 08:04] LABS: ALV-art Gradient 351.675 mmHg (0-20); Puncture Site Right Radial artery
[2024-02-23] MEDS: Propofol 1,000 MG/100 ML VIAL IV PRN (10:18)
[2024-02-23] MEDS: Pantoprazole 40 MG VIAL IVP SCH (10:19)
[2024-02-23] MEDS: Albumin 25% 25 GM (100 mL) BOT IVPB SCH (11:16)
[2024-02-23] MEDS: Furosemide 40 MG (4 mL) VIAL SLOW IVP SCH (11:55)
[2024-02-23] MEDS: Acetaminophen 325 MG TAB PO PRN (23:38)
[2024-02-24 04:02] LABS: INR-International Normal Ratio 1.2; Prothrombin Time 15.6 sec (12.0-14.7)
[2024-02-24 04:03] LABS: PTT 29.2 sec (22.9-36.1)
[2024-02-24 04:27] LABS: Hematocrit 23.2 % (36.0-47.0); Hemoglobin 7.1 g/dL (12.0-16.0); Mean Corpuscular HGB CONC 30.6 g/dL (32.0-36.0); Mean Corpuscular Hemoglobin 35.5 pg (27.0-31.0); Mean Platelet Volume 14.4 fL (7.4-10.4); Platelet Count 64 10x3/uL (130-400); RBC Distribution Width 19.2 % (11.5-14.5)
[2024-02-24 04:48] LABS: ALT (SGPT) 26 U/L (8-55); AST (SGOT) 125 U/L (5-34); Albumin 2.8 g/dL (3.4-4.8); Alkaline Phosphatase 301 U/L (40-110); Anion Gap 13 mmol/L (10-20); BUN (Urea Nitrogen) 26 mg/dL (9.8-20.1); Bilirubin, Total 3.3 mg/dL (0.2-1.2); Calc. Creatinine Clearance 148 mL/min (70-130); Calcium 8.1 mg/dL (7.8-10.44); Carbon Dioxide 30 mmol/L (23-31); Chloride 110 mmol/L (98-107); Estimated GFR 98; Globulin 2.2 g/dL (2.4-3.5); Glucose 118 mg/dL (80-115); Magnesium 2.3 mg/dL (1.6-2.6); Potassium 3.2 mmol/L (3.5-5.1); Sodium 150 mmol/L (136-145)
[2024-02-24] MEDS: Potassium Chloride 10 MEQ in Premix 1 BAG IVPB SCH (06:37)
[2024-02-24 07:08] LABS: Anisocytosis MODERATE=16-30 cells HPF (0-5); Band 5 % (5-11); Eosinophils 7 % (0-10); Hypochromia SLIGHT = 6-15 cells HPF (0-5); Large Platelets 2.1 % (0-5); Lymphocytes 20 % (21-51); Metamyelocyte 1 % (0-0); Monocytes 1 % (0-10); Neutrophil 65 % (42-75); Nucleated RBC (Manual Ct) 9 % (0); Platelet Adequacy Comment Platelets Decreased; Poikilocytosis SLIGHT = 6-15 cells HPF (0-5); Polychromasia MODERATE = 3-4 cells HPF (0-2); Schistocytes SLIGHT = 2-5 cells HPF (0-1)
[2024-02-24 07:53] LABS: Actual Bicarbonate (HCO3a) 31.4 mEq/L (22-28); Base Excess (BEa) 7.6 mEq/L (-2.0 to +3.0); CO2 Tension 40.7 mmHg (35.0-45.0); Calcium, Ionized (arterial) 1.13 mmol/L (1.12-1.30); Carboxyhemoglobin (COHb) 1.3 gm% (0.0-3.0); Hematocrit-ABG 21 % (36.0-47.0); Hemoglobin (Hb) 7.2 g/dL (12.0-16.0); Potassium - ABG Lab 2.98 mmol/L (3.70-5.30); pH, Arterial 7.505 (7.35-7.45)
[2024-02-24 07:54] LABS: Puncture Site Left Radial artery
[2024-02-24 07:55] LABS: ALV-art Gradient 228.575 mmHg (0-20)
[2024-02-24 13:02] LABS: Hemoglobin 6.7 g/dL (12.0-16.0); Mean Corpuscular HGB CONC 30.5 g/dL (32.0-36.0); Mean Corpuscular Hemoglobin 36.2 pg (27.0-31.0); Mean Corpuscular Volume 118.9 fL (78.0-98.0); Mean Platelet Volume 14.1 fL (7.4-10.4); Platelet Count 69 10x3/uL (130-400); RBC Distribution Width 18.6 % (11.5-14.5); Red Blood Cell (RBC) Count 1.85 mill/uL (4.20-5.40)
[2024-02-24 13:36] LABS: Anisocytosis SLIGHT = 6-15 cells HPF (0-5); Band 7 % (5-11); Eosinophils 3 % (0-10); Lymphocytes 14 % (21-51); Macrocytosis SLIGHT = 6-15 cells HPF (0-5); Monocytes 3 % (0-10); Neutrophil 71 % (42-75); Nucleated RBC (Manual Ct) 7 % (0); Platelet Adequacy Comment Platelets Decreased; Polychromasia SLIGHT = 2-3 cells HPF (0-2); Reactive Lymphocytes 2 % (0-10); Smudge Cells 3.9 %; Stomatocytes SLIGHT = 2-5 cells HPF (0-1)
[2024-02-24] MEDS: Potassium Chloride 20 MEQ in Premix 1 BAG IVPB SCH (19:41)
[2024-02-24] MEDS: Furosemide 40 MG (4 mL) VIAL SLOW IVP SCH (19:42)
[2024-02-25 04:39] LABS: Hematocrit 26.5 % (36.0-47.0); Hemoglobin 8.1 g/dL (12.0-16.0); Mean Corpuscular HGB CONC 30.6 g/dL (32.0-36.0); Mean Corpuscular Hemoglobin 34.9 pg (27.0-31.0); Mean Corpuscular Volume 114.2 fL (78.0-98.0); Platelet Count 70 10x3/uL (130-400); Red Blood Cell (RBC) Count 2.32 mill/uL (4.20-5.40)
[2024-02-25 04:50] LABS: INR-International Normal Ratio 1.2; PTT 31.3 sec (22.9-36.1)
[2024-02-25 05:06] LABS: Anisocytosis SLIGHT = 6-15 cells HPF (0-5); Band 3 % (5-11); Large Platelets 5.9 % (0-5); Lymphocytes 17 % (21-51); Macrocytosis SLIGHT = 6-15 cells HPF (0-5); Metamyelocyte 1 % (0-0); Monocytes 5 % (0-10); Myelocyte 2 % (0-0); Neutrophil 72 % (42-75); Nucleated RBC (Manual Ct) 10 % (0); Platelet Adequacy Comment Platelets Decreased; Polychromasia SLIGHT = 2-3 cells HPF (0-2); Smudge Cells 6.9 %; Stomatocytes SLIGHT = 2-5 cells HPF (0-1)
[2024-02-25 05:18] LABS: ALT (SGPT) 32 U/L (8-55); AST (SGOT) 110 U/L (5-34); Albumin 2.5 g/dL (3.4-4.8); Alkaline Phosphatase 282 U/L (40-110); Anion Gap 12 mmol/L (10-20); BUN (Urea Nitrogen) 27 mg/dL (9.8-20.1); Bilirubin, Total 2.4 mg/dL (0.2-1.2); Calc. Creatinine Clearance 143 mL/min (70-130); Calcium 7.9 mg/dL (7.8-10.44); Carbon Dioxide 31 mmol/L (23-31); Chloride 109 mmol/L (98-107); Estimated GFR 96; Globulin 2.5 g/dL (2.4-3.5); Glucose 134 mg/dL (80-115); Magnesium 2.2 mg/dL (1.6-2.6); Potassium 3.1 mmol/L (3.5-5.1); Sodium 149 mmol/L (136-145)
[2024-02-25] MEDS: Potassium Chloride 10 MEQ in Premix 1 BAG IVPB SCH (05:43)
[2024-02-25 07:03] LABS: Actual Bicarbonate (HCO3a) 29.8 mEq/L (22-28); Base Excess (BEa) 4.9 mEq/L (-2.0 to +3.0); CO2 Tension 45.7 mmHg (35.0-45.0); Calcium, Ionized (arterial) 1.08 mmol/L (1.12-1.30); Carboxyhemoglobin (COHb) 2.3 gm% (0.0-3.0); Hematocrit-ABG 27 % (36.0-47.0); Hemoglobin (Hb) 9.1 g/dL (12.0-16.0); Potassium - ABG Lab 3.21 mmol/L (3.70-5.30); pH, Arterial 7.432 (7.35-7.45)
[2024-02-25 07:05] LABS: ALV-art Gradient 220.375 mmHg (0-20)
[2024-02-26 07:58] LABS: Actual Bicarbonate (HCO3a) 30.3 mEq/L (22-28); Base Excess (BEa) 5.5 mEq/L (-2.0 to +3.0); CO2 Tension 45.5 mmHg (35.0-45.0); Carboxyhemoglobin (COHb) 1.1 gm% (0.0-3.0); Hematocrit-ABG 31 % (36.0-47.0); Hemoglobin (Hb) 10.7 g/dL (12.0-16.0); O2 Tension (PaO2), arterial 68.9 mmHg (> 80.0); Puncture Site Left Radial artery; pH, Arterial 7.442 (7.35-7.45)
[2024-02-26 07:59] LABS: ALV-art Gradient 230.725 mmHg (0-20)
[2024-02-26] MEDS: Furosemide 100 MG (10 mL) VIAL FS SCH (09:41)
[2024-02-26 10:12] LABS: Hematocrit 24.6 % (36.0-47.0); Hemoglobin 7.6 g/dL (12.0-16.0); Mean Corpuscular HGB CONC 30.9 g/dL (32.0-36.0); Mean Corpuscular Hemoglobin 35.3 pg (27.0-31.0); Mean Corpuscular Volume 114.4 fL (78.0-98.0); Mean Platelet Volume 14.1 fL (7.4-10.4); Platelet Count 95 10x3/uL (130-400); RBC Distribution Width 21.7 % (11.5-14.5); Red Blood Cell (RBC) Count 2.15 mill/uL (4.20-5.40)
[2024-02-26 10:33] LABS: Anisocytosis SLIGHT = 6-15 cells HPF (0-5); Band 8 % (5-11); Eosinophils 1 % (0-10); Large Platelets 6.9 % (0-5); Lymphocytes 16 % (21-51); Macrocytosis SLIGHT = 6-15 cells HPF (0-5); Monocytes 4 % (0-10); Neutrophil 71 % (42-75); Nucleated RBC (Manual Ct) 3 % (0); Platelet Adequacy Comment Platelets Decreased; Polychromasia MODERATE = 3-4 cells HPF (0-2); Schistocytes SLIGHT = 2-5 cells HPF (0-1)
[2024-02-26 12:45] LABS: Metamyelocyte 1 % (0-0); Stomatocytes SLIGHT = 2-5 cells HPF (0-1)
[2024-02-26] MEDS: Lactulose 20 GM (30 mL) UDCUP PER TUBE SCH (20:05)
[2024-02-26] MEDS: Morphine 2 MG/ML VIAL SLOW IVP PRN (22:17)
[2024-02-27 04:29] LABS: #Basophils 0.05 10x3/uL (0.0-0.2); %Basophils 0.4 % (0.0-1.0); %Eosinophils 0.5 % (0.0-10.0); %Lymphocytes 13.7 % (21.0-51.0); %Neutrophils 77.9 % (42.0-75.0); Hematocrit 25.4 % (36.0-47.0); Hemoglobin 7.7 g/dL (12.0-16.0); Mean Corpuscular HGB CONC 30.3 g/dL (32.0-36.0); Mean Corpuscular Hemoglobin 35.3 pg (27.0-31.0); Mean Corpuscular Volume 116.5 fL (78.0-98.0); Mean Platelet Volume 13.2 fL (7.4-10.4); Platelet Count 125 10x3/uL (130-400); Red Blood Cell (RBC) Count 2.18 mill/uL (4.20-5.40)
[2024-02-27 05:11] LABS: ALT (SGPT) 38 U/L (8-55); AST (SGOT) 97 U/L (5-34); Albumin 1.9 g/dL (3.4-4.8); Alkaline Phosphatase 256 U/L (40-110); Anion Gap 14 mmol/L (10-20); BUN (Urea Nitrogen) 18 mg/dL (9.8-20.1); Bilirubin, Total 1.5 mg/dL (0.2-1.2); Calc. Creatinine Clearance 196 mL/min (70-130); Calcium 7.9 mg/dL (7.8-10.44); Carbon Dioxide 29 mmol/L (23-31); Chloride 105 mmol/L (98-107); Estimated GFR 104; Globulin 3.1 g/dL (2.4-3.5); Glucose 122 mg/dL (80-115); Potassium 3.2 mmol/L (3.5-5.1); Sodium 145 mmol/L (136-145)
[2024-02-27 06:59] LABS: Anisocytosis SLIGHT = 6-15 cells HPF (0-5); Macrocytosis MODERATE=16-30 cells HPF (0-5); Platelet Adequacy Comment Platelets Normal; Polychromasia SLIGHT = 2-3 cells HPF (0-2)
[2024-02-27] MEDS: Potassium Bicarbonate/Cit Ac 20 MEQ TAB PER TUBE SCH (07:10)
[2024-02-27 08:30] LABS: Actual Bicarbonate (HCO3a) 31.3 mEq/L (22-28); Base Excess (BEa) 6.5 mEq/L (-2.0 to +3.0); CO2 Tension 47.1 mmHg (35.0-45.0); Calcium, Ionized (arterial) 1.09 mmol/L (1.12-1.30); Carboxyhemoglobin (COHb) 1.2 gm% (0.0-3.0); Hematocrit-ABG 25 % (36.0-47.0); Hemoglobin (Hb) 8.6 g/dL (12.0-16.0); O2 Tension (PaO2), arterial 75.6 mmHg (> 80.0); Potassium - ABG Lab 3.99 mmol/L (3.70-5.30); pH, Arterial 7.441 (7.35-7.45)
[2024-02-27 08:34] LABS: Puncture Site Left Radial artery
[2024-02-27 08:35] LABS: ALV-art Gradient 222.025 mmHg (0-20)
[2024-02-27] MEDS: Albumin 25% 25 GM (100 mL) BOT IVPB SCH (16:30)
[2024-02-28 04:24] LABS: ALT (SGPT) 37 U/L (8-55); AST (SGOT) 82 U/L (5-34); Albumin 2.1 g/dL (3.4-4.8); Alkaline Phosphatase 222 U/L (40-110); Anion Gap 13 mmol/L (10-20); BUN (Urea Nitrogen) 16 mg/dL (9.8-20.1); Bilirubin, Total 1.4 mg/dL (0.2-1.2); Calc. Creatinine Clearance 209 mL/min (70-130); Carbon Dioxide 32 mmol/L (23-31); Chloride 107 mmol/L (98-107); Estimated GFR 105; Glucose 138 mg/dL (80-115); Potassium 3.7 mmol/L (3.5-5.1); Protein, Total 5.1 g/dL (5.8-8.1); Sodium 148 mmol/L (136-145)
[2024-02-28 04:27] LABS: #Basophils 0.05 10x3/uL (0.0-0.2); %Basophils 0.5 % (0.0-1.0); %Eosinophils 0.9 % (0.0-10.0); %Monocytes 5.4 % (0.0-10.0); %Neutrophils 75.4 % (42.0-75.0); Hematocrit 23.6 % (36.0-47.0); Hemoglobin 7.2 g/dL (12.0-16.0); Mean Corpuscular HGB CONC 30.5 g/dL (32.0-36.0); Mean Corpuscular Hemoglobin 35.5 pg (27.0-31.0); Mean Corpuscular Volume 116.3 fL (78.0-98.0); Mean Platelet Volume 12.5 fL (7.4-10.4); Platelet Count 186 10x3/uL (130-400); RBC Distribution Width 19.8 % (11.5-14.5); Red Blood Cell (RBC) Count 2.03 mill/uL (4.20-5.40)
[2024-02-28] MEDS ORDERED: Propofol BOLUS 1,000 MG/100 ML VIAL IV PRN (14:00)
[2024-02-28] MEDS: Propofol 1,000 MG/100 ML VIAL IV PRN (14:08)
[2024-02-28] MEDS: Furosemide 40 MG (4 mL) VIAL SLOW IVP SCH (17:18)
[2024-02-28] MEDS: Acetaminophen 650 MG/20.3 ML UDCUP PO PRN (17:33)
[2024-02-29 04:17] LABS: #Basophils 0.04 10x3/uL (0.0-0.2); %Basophils 0.4 % (0.0-1.0); %Eosinophils 1.1 % (0.0-10.0); %Lymphocytes 14.8 % (21.0-51.0); %Monocytes 5.6 % (0.0-10.0); %Neutrophils 77.4 % (42.0-75.0); Hematocrit 22.4 % (36.0-47.0); Hemoglobin 6.8 g/dL (12.0-16.0); Mean Corpuscular HGB CONC 30.4 g/dL (32.0-36.0); Mean Corpuscular Volume 118.5 fL (78.0-98.0); Platelet Count 200 10x3/uL (130-400); RBC Distribution Width 19.3 % (11.5-14.5); Red Blood Cell (RBC) Count 1.89 mill/uL (4.20-5.40)
[2024-02-29 04:36] LABS: ALT (SGPT) 29 U/L (8-55); AST (SGOT) 59 U/L (5-34); Albumin 2.5 g/dL (3.4-4.8); Alkaline Phosphatase 172 U/L (40-110); Anion Gap 11 mmol/L (10-20); BUN (Urea Nitrogen) 14 mg/dL (9.8-20.1); Bilirubin, Total 1.2 mg/dL (0.2-1.2); Calc. Creatinine Clearance 233 mL/min (70-130); Carbon Dioxide 34 mmol/L (23-31); Chloride 104 mmol/L (98-107); Estimated GFR 108; Globulin 2.8 g/dL (2.4-3.5); Glucose 137 mg/dL (80-115); Potassium 3.6 mmol/L (3.5-5.1); Protein, Total 5.3 g/dL (5.8-8.1); Sodium 145 mmol/L (136-145)
[2024-02-29 12:08] VITALS: BMI 43.1
[2024-02-29] MEDS: hydrALAZINE 20 MG/ML VIAL SLOW IVP PRN (12:17)
[2024-02-29 12:19] VITALS: BP 170/86
[2024-02-29] MEDS: Metoprolol Tartrate 5 MG (5 mL) VIAL IVP SCH ×2 (13:27→15:10)
[2024-02-29] MEDS: Metoprolol Tartrate 5 MG (5 mL) VIAL ONE (15:13)
[2024-02-29 16:41] VITALS: TEMP 99.1
== END 2024-02-29 20:55 | disposition hospice, inpatient (51) | DRG 870 ==
LOC: ERS 15:18 → ERHOLD 18:07 → IMCU/EMU 20:54 → CCU 02-18 11:16
PROVIDERS: ADMIT Family Medicine; ATTEND Family Medicine
PROC: 0BH17EZ Insertion of Endotracheal Airway into Trachea, Via Natural or Artificial Opening (ICD-10-PCS; principal; 2024-02-18)
PROC: 5A1955Z Respiratory Ventilation, Greater than 96 Consecutive Hours (ICD-10-PCS; 2024-02-18)
PROC: 03HY32Z Insertion of Monitoring Device into Upper Artery, Percutaneous Approach (ICD-10-PCS; 2024-02-18)
PROC: XX20X89 Monitoring of Brain Electrical Activity, Computer-aided Detection and Notification, New Technology Group 9 (ICD-10-PCS; 2024-02-18)
PROC: 4A133R1 Monitoring of Arterial Saturation, Peripheral, Percutaneous Approach (ICD-10-PCS; 2024-02-18)
PROC: 3E033XZ Introduction of Vasopressor into Peripheral Vein, Percutaneous Approach (ICD-10-PCS; 2024-02-18)
PROC: 02HV33Z Insertion of Infusion Device into Superior Vena Cava, Percutaneous Approach (ICD-10-PCS; 2024-02-20)
PROC: B548ZZA Ultrasonography of Superior Vena Cava, Guidance (ICD-10-PCS; 2024-02-20)
PROC: 3E02340 Introduction of Influenza Vaccine into Muscle, Percutaneous Approach (ICD-10-PCS; 2024-02-20)
PROC: 30233N1 Transfusion of Nonautologous Red Blood Cells into Peripheral Vein, Percutaneous Approach (ICD-10-PCS; 2024-02-24)
PROC: 4A10X4Z Monitoring of Central Nervous Electrical Activity, External Approach (ICD-10-PCS; 2024-02-26)
DX: A41.51 Sepsis due to Escherichia coli [E. coli] (principal); G93.41 Metabolic encephalopathy; J96.01 Acute respiratory failure with hypoxia; S06.5X0A Traumatic subdural hemorrhage without loss of consciousness, initial encounter; R65.21 Severe sepsis with septic shock; K72.00 Acute and subacute hepatic failure without coma; G93.1 Anoxic brain damage, not elsewhere classified; E87.1 Hypo-osmolality and hyponatremia; N39.0 Urinary tract infection, site not specified; Z68.41 Body mass index [BMI] 40.0-44.9, adult; E87.0 Hyperosmolality and hypernatremia; Z51.5 Encounter for palliative care; Z66 Do not resuscitate; K76.82 Hepatic encephalopathy; I89.0 Lymphedema, not elsewhere classified; K70.30 Alcoholic cirrhosis of liver without ascites; Z86.711 Personal history of pulmonary embolism; E87.6 Hypokalemia; D63.8 Anemia in other chronic diseases classified elsewhere; N28.89 Other specified disorders of kidney and ureter; I10 Essential (primary) hypertension; E83.51 Hypocalcemia; R56.9 Unspecified convulsions; E66.01 Morbid (severe) obesity due to excess calories; K72.10 Chronic hepatic failure without coma; E87.8 Other disorders of electrolyte and fluid balance, not elsewhere classified; Z88.8 Allergy status to other drugs, medicaments and biological substances; Z79.01 Long term (current) use of anticoagulants; Z79.899 Other long term (current) drug therapy; Z90.49 Acquired absence of other specified parts of digestive tract; Z90.710 Acquired absence of both cervix and uterus; Z23 Encounter for immunization; W19.XXXA Unspecified fall, initial encounter; Y93.89 Activity, other specified; Y92.89 Other specified places as the place of occurrence of the external cause
CPT/HCPCS: 36415; 36416; 36430; 36600; 70450; 70496; 70498; 70553; 71045; 71260; 71275; 72125; 74177; 74181; 76376; 76705; 80048; 80053; 80076; 81001; 82140; 82607; 82805; 83036; 83516; 83540; 83550; 83605; 83690; 83735; 83880; 84145; 84443; 85025; 85610; 85730; 86015; 86706; 86708; 86803; 86850; 86900; 86901; 87040; 87077; 87086; 87149; 87186; 87340; 93005; 93010; 93306; 93970; 94002; 94003; 94760; 95705; 95708; 95816; 96374; 96375; 97139; C9254; G0390; J0360; J0692; J0696; J1815; J1940; J1953; J2060; J2185; J2272; J2470; J2704; J3010; J3370; J3411; J3475; J3480; J3490; J7030; J7120; J7168; P9016; P9045; P9047; Q9967

== ENCOUNTER 2024-02-29 20:33 | Inpatient (IN) | payer OTHER ==
[2024-02-29] MEDS ORDERED: Morphine 4 MG/ML VIAL SLOW IVP PRN (20:55)
[2024-02-29] MEDS ORDERED: Lorazepam 2 MG/ML VIAL SLOW IVP PRN (20:55)
[2024-02-29] MEDS ORDERED: Acetaminophen 650 MG Suppository PR PRN (20:56)
[2024-02-29] MEDS ORDERED: Bisacodyl 10 MG SUPP PR PRN (20:56)
[2024-02-29] MEDS ORDERED: Scopolamine 1 mg/72 hour Patch TOP SCH (21:00)
[2024-02-29] MEDS ORDERED: levETIRAcetam 500 MG (5 mL) VIAL SLOW IVP SCH (21:00)
[2024-02-29] MEDS: Atropine Sulfate 1% Ophth Soln 5 ml Bottle SL PRN (21:18)
[2024-02-29] MEDS: Lorazepam 2 MG/ML VIAL SLOW IVP SCH (21:18)
[2024-02-29] MEDS: Morphine 4 MG/ML VIAL SLOW IVP SCH (21:19)
== END 2024-02-29 23:16 | disposition expired | DRG 951 ==
LOC: CCU 20:33 → UNDOADMIN 20:33
PROVIDERS: ADMIT Internal Medicine Nephrology; ATTEND Internal Medicine Nephrology
DX: Z51.5 Encounter for palliative care (principal); S06.5XAA Traumatic subdural hemorrhage with loss of consciousness status unknown, initial encounter; Z98.890 Other specified postprocedural states; Z79.01 Long term (current) use of anticoagulants; Z86.711 Personal history of pulmonary embolism; Z88.8 Allergy status to other drugs, medicaments and biological substances; Z79.899 Other long term (current) drug therapy; W18.30XA Fall on same level, unspecified, initial encounter
CPT/HCPCS: J2060; J2272